=== PATIENT | male | born 1950 | race Caucasian/White ===

== ENCOUNTER 2016-12-17 15:52 | Emergency (ER) | payer OTHER ==
--- NOTE | 2016-12-17 16:42 | DIAGNOSTIC IMAGING REPORT ---
PROCEDURE: XR CHEST 2 VIEW INDICATION: FEVER TECHNIQUE: Two views. COMPARISON: 12/03/2013 FINDINGS: The cardiomediastinal contour is stable, within normal limits. The central vasculature is not congested. The lungs are clear without focal consolidation, pleural effusion or pneumothorax. Blunting of the posterior costophrenic angles, chronic. The visualized osseous structures are intact. IMPRESSION: 1. No evidence of acute cardiopulmonary disease. 2. Stable exam compared to prior study.
--- NOTE | 2016-12-17 18:12 | ED CLINICAL REPORT ---
Clinical Report - Physicians/Mid Levels [facility] [address] [place] [address] 12/17/2016 15:58 Patient: JAIME ALBA Time Seen: 16:11 Dec 17 2016. Arrived- By private vehicle. Historian- EMS personnel. HISTORY OF PRESENT ILLNESS Chief Complaint: MUSCLE ACHES fever. This started 5 days and is still present. The patient has had loss of appetite, fatigue, muscle aches and weakness. (weeks previously patient reports a sore throat, and some difficulty with his voice, which resolved in 2-3 days, consequently patient was at [employer] when his symptoms resolved, 3-4 days later he developed some diarrhea, and lasted for about 1 day 24 hours with fevers. He had been feeling better over December 09, and then around the seventh developed body aches or arthralgias fatigue, fevers. Denies a cough. Denies sick contacts.). REVIEW OF SYSTEMS The patient has had fever, abdominal pain, nausea and diarrhea. He has had a sore throat (now resolved). No cough, difficulty breathing, vomiting, black stools or bloody stools. No headache. No difficulty with ambulation. All systems otherwise negative, except as recorded above. PAST HISTORY Problems: Fractured Phalanx (Finger). Animal Bite. Allergic Rhinitis. Tetanus Status. Sinusitis. Pneumonia. Immunizations. Additional Surgeries: Gloria Fundoplasty. Medications: Symbicort Inhalation. Levothyroxine Sodium Oral. Fluticasone Furoate Nasal. Allergies: Reglan. Definite(swelling) Statins. Definite Severe (Lost muscle mass). SOCIAL HISTORY Never smoker. Alcohol use. ADDITIONAL NOTES The nursing notes have been reviewed. PHYSICAL EXAM Vital Signs: 12/17/2016 16:05 BP: 117/75. HR: 78. RR: 18. O2 saturation: 95%. Temp: 98.5 F. Appearance: Alert. Eyes: Eyes normal inspection. ENT: Ears normal. Nose normal. Neck: Normal inspection. CVS: Normal heart rate and rhythm. Heart sounds normal. Respiratory: No respiratory distress. Breath sounds normal. No decreased air movement. Abdomen: Tenderness in the suprapubic area. Back: Normal inspection. No CVA tenderness. Skin: Skin warm. Normal skin color. Neuro: Oriented X 3. LABS, X-RAYS, AND EKG Chest X-ray: (IMPRESSION: 1. No evidence of acute cardiopulmonary disease. 2. Stable exam compared to prior study. Electronically Final signed by:Sari Horvath MD 12/17/2016 4:42:24 PM). Laboratory Tests: UA-Culture if indicated: (JADE: 12/17/2016 18:04) ( MsgRcvd 12/17/2016 18:15) Final results Test Result Flag Units (Reference) URINE COLOR STRAW URINE APPEARANCE CLEAR URINE GLUCOSE NEGATIVE (NEGATIVE) URINE BILIRUBIN NEGATIVE (NEGATIVE) URINE KETONE NEGATIVE (NEGATIVE) URINE SPECIFIC GRAVITY <= 1.005 L (1.010-1.030) URINE PH 6.0 (5.0-8.0) URINE PROTEIN NEGATIVE (NEGATIVE) URINE UROBILINOGEN 0.2 EU/dL (0.2-1.0) URINE NITRITE NEGATIVE (NEGATIVE) URINE BLOOD NEGATIVE (NEGATIVE) URINE LEUK ESTERASE NEGATIVE (NEGATIVE) URINE RBC NONE SEEN rbc/hpf (0-1) URINE WBC RARE wbc/hpf (0-1) URINE EPITHELIAL CELLS RARE EPI/hpf (0-5) URINE BACTERIA NONE SEEN (NONE SEEN) URINE COMMENT CULT NOT INDICATED URINE CULTURES ARE SET-UP BASED ON THE FOLLOWING CRITERIA:POSITIVE NITRITEPOSITIVE LEUKOCYTE ESTERASEGREATER THAN 10 WHITE BLOOD CELLSMODERATE (2+) OR GREATER BACTERIA CBC w Diff: (JADE: 12/17/2016 16:40) ( MsgRcvd 12/17/2016 17:02) Final results Test Result Flag Units (Reference) WHITE BLOOD COUNT 9.7 K/uL (4.5-11.5) RED BLOOD COUNT 4.75 M/uL (4.50-5.90) HEMOGLOBIN 14.7 gm/dL (13.5-17.5) HEMATOCRIT 43.4 % (41.0-53.0) MEAN CELL VOLUME 92 fL (80-100) MEAN CORPUSCULAR HGB 31 pg (26-34) MEAN CORPUSCULAR HGB CONC 34 g/dL (31-37) RED CELL DISTRIBUTION WIDTH 13.1 % (11.6-14.8) PLATELET COUNT 264 K/uL (150-400) NEUTROPHIL % 82.4 H % (50-75) LYMPH % 7.5 L % (25-40) MONO % 9.6 % (3-14) EOSINOPHIL % 0.5 % (0-4) BASOPHIL % 0 % (0-2) [id number]: (JADE: 12/17/2016 16:55) ( MsgRcvd 12/17/2016 17:39) Final results Test Result Flag Units (Reference) PROCALCITONIN <0.5 ng/mL (0-0.5) PCT Concentration: Interpretation : Risk/option for action PCT <=0.5 ng/mL : Systemic : Low risk forinfection(sepsis): progression to severeis not likely. : systemic infection.Local bacterial : CAUTION-PCT levelsinfection is : below 0.5 ng/mL do notpossible. : exclude an infection,because localizedinfections (withoutsystemic signs) may beassociated with suchlow levels. If PCT ismeasured very earlyafter a bacterialchallenge (usually <6hours), these valuesmay still be low. Inthis case PCT shouldbe re-assessed 6-24hours later. PCT >0.5 and : Systemic infection: Moderate risk for<= 2 ng/mL : (sepsis) is : progression to severepossible, but : systemic infection.other conditions : The patient should beare known to : closely monitoredelevate PCT. : both clinically andby re-assessing PCTwithin 6-24 hours. PCT > 2 ng/mL : Systemic infection: High risk for(sepsis) is likely: progression to severeunless other : systemic infection.causes are known. : PCT >= 10 ng/mL : Important systemic: High likelihood ofinflammatory : severe sepsis orresponse, almost : septic shock.exclusively due to:severe bacterial :sepsis or septic :shock. : CMP: (JADE: 12/17/2016 16:40) ( MsgRcvd 12/17/2016 17:18) Final results Test Result Flag Units (Reference) GLUCOSE 112 H mg/dL (70-110) BUN 13 mg/dL (7-18) CREATININE 1.1 mg/dL (0.6-1.3) Estimated GFR >60 mL/min Estimated GFR- >60 mL/min Note: Persistent reduction over 3 months in eGFR<60 mL/min/1.73 m2 defines CKD. Patients with eGFR values>=60 mL/min/1.73 m2 may also have CKD if evidence ofpersistent proteinuria. Additional information may be foundat www.kidney.org. SODIUM 140 mmol/L (136-145) POTASSIUM 3.9 mmol/L (3.5-5.1) CHLORIDE 103 mmol/L (98-107) CARBON DIOXIDE 29 mmol/L (21-32) CALCIUM 9.4 mg/dL (8.5-10.1) TOTAL PROTEIN 7.8 g/dL (6.4-8.2) ALBUMIN 3.6 g/dL (3.3-5.0) BILIRUBIN, TOTAL 0.5 mg/dL (0.0-1.0) ALKALINE PHOSPHATASE 101 U/L (46-116) AST (SGOT) 15 U/L (15-37) ALT (SGPT) 23 U/L (12-78) LIPASE 120 U/L (73-393) . PROGRESS AND PROCEDURES Course of Care: records from [facility] from 12/16: UA trace blood, Sed rate elevated 35 CBC: wbc 9.5, h/h 14.8/ 43.2, plt 237, rbc 4.8 cmp:glucose 93, bun 15, creat 1.06, na 136, K 4.3, chloride 103, co2, 25, total protein 7.5, ca 9.5, ast 18, alt19, alk phos 84, t.bili 0.6, gfr> 60 While in the ER at the [facility] call, positive C. difficile. Patient is afebrile,no leukocytosis, with lower abdominal pain, which is minimal to tenderness in palpation in nature, and will be started on metronidazole outpatient. 12/17/2016 18:31 BP: 120/75. HR: 68. RR: 18. O2 saturation: 100%. Temp: 98.8 F. Patient is stable. Patient/family counseled. Disposition: Discharged. Condition: good. CLINICAL IMPRESSION Diarrhea (C. DIFF). INSTRUCTIONS Alternate Tylenol (Acetaminophen) or Motrin (Ibuprofen) for fever control. Take according to label instructions. Warnings: GENERAL WARNINGS: Return or contact your physician immediately if your condition worsens or changes unexpectedly, if not improving as expected, or if other problems arise. Prescription Medications: Metronidazole 500 mg: Take 1 tablet orally every 8 hours for 14 days OTC Medications: Take ibuprofen (Advil, Nuprin, etc.) according to label instructions. Available over the counter. Acetaminophen (available over the counter): take according to label instructions. Follow-up: Follow up with your doctor in two days as needed. (Electronically signed by Rachna Marte P.A.-C 12/17/2016 18:39)
--- NOTE | 2016-12-17 18:12 | ED CLINICAL REPORT ---
Clinical Report - Physicians/Mid Levels [facility] [address] [place] [address] 12/17/2016 15:58 Patient: JAIME ALBA Time Seen: 16:11 Dec 17 2016. Arrived- By private vehicle. Historian- EMS personnel. HISTORY OF PRESENT ILLNESS Chief Complaint: MUSCLE ACHES fever. This started 5 days and is still present. The patient has had loss of appetite, fatigue, muscle aches and weakness. (weeks previously patient reports a sore throat, and some difficulty with his voice, which resolved in 2-3 days, consequently patient was at [employer] when his symptoms resolved, 3-4 days later he developed some diarrhea, and lasted for about 1 day 24 hours with fevers. He had been feeling better over December 09, and then around the seventh developed body aches or arthralgias fatigue, fevers. Denies a cough. Denies sick contacts.). REVIEW OF SYSTEMS The patient has had fever, abdominal pain, nausea and diarrhea. He has had a sore throat (now resolved). No cough, difficulty breathing, vomiting, black stools or bloody stools. No headache. No difficulty with ambulation. All systems otherwise negative, except as recorded above. PAST HISTORY Problems: Fractured Phalanx (Finger). Animal Bite. Allergic Rhinitis. Tetanus Status. Sinusitis. Pneumonia. Immunizations. Additional Surgeries: Gloria Fundoplasty. Medications: Symbicort Inhalation. Levothyroxine Sodium Oral. Fluticasone Furoate Nasal. Allergies: Reglan. Definite(swelling) Statins. Definite Severe (Lost muscle mass). SOCIAL HISTORY Never smoker. Alcohol use. ADDITIONAL NOTES The nursing notes have been reviewed. PHYSICAL EXAM Vital Signs: 12/17/2016 16:05 BP: 117/75. HR: 78. RR: 18. O2 saturation: 95%. Temp: 98.5 F. Appearance: Alert. Eyes: Eyes normal inspection. ENT: Ears normal. Nose normal. Neck: Normal inspection. CVS: Normal heart rate and rhythm. Heart sounds normal. Respiratory: No respiratory distress. Breath sounds normal. No decreased air movement. Abdomen: Tenderness in the suprapubic area. Back: Normal inspection. No CVA tenderness. Skin: Skin warm. Normal skin color. Neuro: Oriented X 3. LABS, X-RAYS, AND EKG Chest X-ray: (IMPRESSION: 1. No evidence of acute cardiopulmonary disease. 2. Stable exam compared to prior study. Electronically Final signed by:Sari Horvath MD 12/17/2016 4:42:24 PM). Laboratory Tests: UA-Culture if indicated: (JADE: 12/17/2016 18:04) ( MsgRcvd 12/17/2016 18:15) Final results Test Result Flag Units (Reference) URINE COLOR STRAW URINE APPEARANCE CLEAR URINE GLUCOSE NEGATIVE (NEGATIVE) URINE BILIRUBIN NEGATIVE (NEGATIVE) URINE KETONE NEGATIVE (NEGATIVE) URINE SPECIFIC GRAVITY <= 1.005 L (1.010-1.030) URINE PH 6.0 (5.0-8.0) URINE PROTEIN NEGATIVE (NEGATIVE) URINE UROBILINOGEN 0.2 EU/dL (0.2-1.0) URINE NITRITE NEGATIVE (NEGATIVE) URINE BLOOD NEGATIVE (NEGATIVE) URINE LEUK ESTERASE NEGATIVE (NEGATIVE) URINE RBC NONE SEEN rbc/hpf (0-1) URINE WBC RARE wbc/hpf (0-1) URINE EPITHELIAL CELLS RARE EPI/hpf (0-5) URINE BACTERIA NONE SEEN (NONE SEEN) URINE COMMENT CULT NOT INDICATED URINE CULTURES ARE SET-UP BASED ON THE FOLLOWING CRITERIA:POSITIVE NITRITEPOSITIVE LEUKOCYTE ESTERASEGREATER THAN 10 WHITE BLOOD CELLSMODERATE (2+) OR GREATER BACTERIA CBC w Diff: (JADE: 12/17/2016 16:40) ( MsgRcvd 12/17/2016 17:02) Final results Test Result Flag Units (Reference) WHITE BLOOD COUNT 9.7 K/uL (4.5-11.5) RED BLOOD COUNT 4.75 M/uL (4.50-5.90) HEMOGLOBIN 14.7 gm/dL (13.5-17.5) HEMATOCRIT 43.4 % (41.0-53.0) MEAN CELL VOLUME 92 fL (80-100) MEAN CORPUSCULAR HGB 31 pg (26-34) MEAN CORPUSCULAR HGB CONC 34 g/dL (31-37) RED CELL DISTRIBUTION WIDTH 13.1 % (11.6-14.8) PLATELET COUNT 264 K/uL (150-400) NEUTROPHIL % 82.4 H % (50-75) LYMPH % 7.5 L % (25-40) MONO % 9.6 % (3-14) EOSINOPHIL % 0.5 % (0-4) BASOPHIL % 0 % (0-2) [id number]: (JADE: 12/17/2016 16:55) ( MsgRcvd 12/17/2016 17:39) Final results Test Result Flag Units (Reference) PROCALCITONIN <0.5 ng/mL (0-0.5) PCT Concentration: Interpretation : Risk/option for action PCT <=0.5 ng/mL : Systemic : Low risk forinfection(sepsis): progression to severeis not likely. : systemic infection.Local bacterial : CAUTION-PCT levelsinfection is : below 0.5 ng/mL do notpossible. : exclude an infection,because localizedinfections (withoutsystemic signs) may beassociated with suchlow levels. If PCT ismeasured very earlyafter a bacterialchallenge (usually <6hours), these valuesmay still be low. Inthis case PCT shouldbe re-assessed 6-24hours later. PCT >0.5 and : Systemic infection: Moderate risk for<= 2 ng/mL : (sepsis) is : progression to severepossible, but : systemic infection.other conditions : The patient should beare known to : closely monitoredelevate PCT. : both clinically andby re-assessing PCTwithin 6-24 hours. PCT > 2 ng/mL : Systemic infection: High risk for(sepsis) is likely: progression to severeunless other : systemic infection.causes are known. : PCT >= 10 ng/mL : Important systemic: High likelihood ofinflammatory : severe sepsis orresponse, almost : septic shock.exclusively due to:severe bacterial :sepsis or septic :shock. : CMP: (JADE: 12/17/2016 16:40) ( MsgRcvd 12/17/2016 17:18) Final results Test Result Flag Units (Reference) GLUCOSE 112 H mg/dL (70-110) BUN 13 mg/dL (7-18) CREATININE 1.1 mg/dL (0.6-1.3) Estimated GFR >60 mL/min Estimated GFR- >60 mL/min Note: Persistent reduction over 3 months in eGFR<60 mL/min/1.73 m2 defines CKD. Patients with eGFR values>=60 mL/min/1.73 m2 may also have CKD if evidence ofpersistent proteinuria. Additional information may be foundat www.kidney.org. SODIUM 140 mmol/L (136-145) POTASSIUM 3.9 mmol/L (3.5-5.1) CHLORIDE 103 mmol/L (98-107) CARBON DIOXIDE 29 mmol/L (21-32) CALCIUM 9.4 mg/dL (8.5-10.1) TOTAL PROTEIN 7.8 g/dL (6.4-8.2) ALBUMIN 3.6 g/dL (3.3-5.0) BILIRUBIN, TOTAL 0.5 mg/dL (0.0-1.0) ALKALINE PHOSPHATASE 101 U/L (46-116) AST (SGOT) 15 U/L (15-37) ALT (SGPT) 23 U/L (12-78) LIPASE 120 U/L (73-393) . PROGRESS AND PROCEDURES Course of Care: records from [facility] from 12/16: UA trace blood, Sed rate elevated 35 CBC: wbc 9.5, h/h 14.8/ 43.2, plt 237, rbc 4.8 cmp:glucose 93, bun 15, creat 1.06, na 136, K 4.3, chloride 103, co2, 25, total protein 7.5, ca 9.5, ast 18, alt19, alk phos 84, t.bili 0.6, gfr> 60 While in the ER at the [facility] call, positive C. difficile. Patient is afebrile,no leukocytosis, with lower abdominal pain, which is minimal to tenderness in palpation in nature, and will be started on metronidazole outpatient. 12/17/2016 18:31 BP: 120/75. HR: 68. RR: 18. O2 saturation: 100%. Temp: 98.8 F. Patient is stable. Patient/family counseled. Disposition: Discharged. Condition: good. CLINICAL IMPRESSION Diarrhea (C. DIFF). INSTRUCTIONS Alternate Tylenol (Acetaminophen) or Motrin (Ibuprofen) for fever control. Take according to label instructions. Warnings: GENERAL WARNINGS: Return or contact your physician immediately if your condition worsens or changes unexpectedly, if not improving as expected, or if other problems arise. Prescription Medications: Metronidazole 500 mg: Take 1 tablet orally every 8 hours for 14 days OTC Medications: Take ibuprofen (Advil, Nuprin, etc.) according to label instructions. Available over the counter. Acetaminophen (available over the counter): take according to label instructions. Follow-up: Follow up with your doctor in two days as needed. (Electronically signed by Rachna Marte P.A.-C 12/17/2016 18:39)
--- NOTE | 2016-12-17 18:12 | ED ORDER SUMMARY ---
..... Patient: JAIME ALBA OrderSheet [facility] VisitID: [id number] [address] [place] [address] 66y, M Registration Date/Time: 12/17/2016 ORDER SHEET Weight: 87.9 kg (stated) Allergies: Reglan, Statins GENERAL ORDERS: CBC w Diff Urgent (16:19 12/17/2016 EKoroleva P.A.-C) (Ack 16:22 PWeiler ER Tech1) (16:38 LWhalen R.N.) CMP Urgent (16:19 12/17/2016 EKoroleva P.A.-C) (Ack 16:22 PWeiler ER Tech1) (16:38 LWhalen R.N.) UA-Culture if indicated Urgent (16:19 12/17/2016 EKoroleva P.A.-C) (Ack 16:22 PWeiler ER Tech1) (16:38 LWhalen R.N.) Lipase Urgent (16:19 12/17/2016 EKoroleva P.A.-C) (Ack 16:22 PWeiler ER Tech1) (16:38 LWhalen R.N.) Rapid Influenza Screen (Nasal Pharyngeal) (n) Urgent (16:19 12/17/2016 EKoroleva P.A.-C) (Ack 16:23 PWeiler ER Tech1) (16:38 LWhalen R.N.) Chest 2V Urgent (16:19 12/17/2016 EKoroleva P.A.-C) (Ack 16:23 PWeiler ER Tech1) (16:38 LWhalen R.N.) PCT (Procalcitonin) Urgent (16:20 12/17/2016 EKoroleva P.A.-C) (Ack 16:23 PWeiler ER Tech1) (16:38 LWhalen R.N.) MEDICATION ORDERS: Metronidazole PO 500 mg (NOW) (18:05 12/17/2016 EKoroleva P.A.-C) (18:12 LWhalen R.N.) IV FLUIDS: IV NS : initial bolus 1000 mL (1000 mL/hr), then 1000 mL/hr for X1 (NOW); Anil (16:19 12/17/2016 Wilbert Velarde) (16:38 Daljit Freeman) ORDER SHEET NOTES: [Electronically signed by Rachna Marte P.A.-C (18:39 12/17/2016)] [Electronically signed by Lizzeth Núñez R.N. (19:34 12/18/2016)] [Electronically locked/signed by Lizzeth Núñez R.N. (19:34 12/18/2016)]
--- NOTE | 2016-12-17 18:12 | ED ORDER SUMMARY ---
..... Patient: JAIME ALBA OrderSheet [facility] VisitID: [id number] [address] [place] [address] 66y, M Registration Date/Time: 12/17/2016 ORDER SHEET Weight: 87.9 kg (stated) Allergies: Reglan, Statins GENERAL ORDERS: CBC w Diff Urgent (16:19 12/17/2016 EKoroleva P.A.-C) (Ack 16:22 PWeiler ER Tech1) (16:38 LWhalen R.N.) CMP Urgent (16:19 12/17/2016 EKoroleva P.A.-C) (Ack 16:22 PWeiler ER Tech1) (16:38 LWhalen R.N.) UA-Culture if indicated Urgent (16:19 12/17/2016 EKoroleva P.A.-C) (Ack 16:22 PWeiler ER Tech1) (16:38 LWhalen R.N.) Lipase Urgent (16:19 12/17/2016 EKoroleva P.A.-C) (Ack 16:22 PWeiler ER Tech1) (16:38 LWhalen R.N.) Rapid Influenza Screen (Nasal Pharyngeal) (n) Urgent (16:19 12/17/2016 EKoroleva P.A.-C) (Ack 16:23 PWeiler ER Tech1) (16:38 LWhalen R.N.) Chest 2V Urgent (16:19 12/17/2016 EKoroleva P.A.-C) (Ack 16:23 PWeiler ER Tech1) (16:38 LWhalen R.N.) PCT (Procalcitonin) Urgent (16:20 12/17/2016 EKoroleva P.A.-C) (Ack 16:23 PWeiler ER Tech1) (16:38 LWhalen R.N.) MEDICATION ORDERS: Metronidazole PO 500 mg (NOW) (18:05 12/17/2016 EKoroleva P.A.-C) (18:12 LWhalen R.N.) IV FLUIDS: IV NS : initial bolus 1000 mL (1000 mL/hr), then 1000 mL/hr for X1 (NOW); Anil (16:19 12/17/2016 Wilbert Velarde) (16:38 Daljit Freeman) ORDER SHEET NOTES: [Electronically signed by Rachna Marte P.A.-C (18:39 12/17/2016)] [Electronically signed by Lizzeth Núñez R.N. (19:34 12/18/2016)] [Electronically locked/signed by Lizzeth Núñez R.N. (19:34 12/18/2016)]
--- NOTE | 2016-12-17 18:12 | ED NURSING NOTES ---
Clinical Report - Nurses [facility] [address] [place] [address] 12/17/2016 15:58 Patient: JAIME ALBA TRIAGE Triage time 16:Dec 17 2016. Acuity: LEVEL 3. Chief Complaint: FEVER, CHILLS, MUSCLE ACHES, HEADACHE, EAR PAIN, DIARRHEA and ABDOMINAL PAIN. EWA COMA SCORE: Ewa Coma Scale: 15- eyes open spontaneously (4); best verbal response- oriented x 4 (5); best motor response- obeys commands (6). --16:19 Lizzeth Núñez R.N. 16:05 12/17/16. BP: 117/75. HR: 78. RR: 18. O2 saturation: 95%. Temp: 98.5 F. Pain level now 6/10. --16:19 Lizzeth Núñez R.N. Weight: 87.9 kg stated. Height/Length: 71 inches Per Patient. BMI: 27. --16:18 Lizzeth Núñez R.N. Medications Fluticasone Furoate Nasal. --16:11 Lizzeth Núñez R.N. Levothyroxine Sodium Oral. --16:12 Lizzeth Núñez R.N. Symbicort Inhalation. --16:12 Lizzeth Núñez R.N. Allergies Reglan. Definite(swelling) Statins. Definite Severe (Lost muscle mass) --16:11 Lizzeth Núñez R.N. History Arrived by private vehicle. Historian: patient. Accompanied by family. ( Patient has been having diarrhea off and on since the . Is having body aches and headache. A fever off and on. States feels like the flu aches all over.). He has had fever and weakness. Reports muscle aches. No cough, difficulty breathing or skin rash. Treatment COLLISION REPAIRER: Took Tylenol. PAST MEDICAL HX: No history of diabetes mellitus, hypertension, heart disease or lung disease. Immunizations: up-to-date. SOCIAL HX: Never smoker. Occasional alcohol use. No drug use. SELF HARM ASSESSMENT: A self harm assessment was performed. The patient answered "no" to the question "Have you recently felt down, depressed, or hopeless?" and "Do you have thoughts of harming or killing yourself?". FALL RISK ASSESSMENT: Fall risk assessment completed. No fall risk identified. NUTRITIONAL RISK ASSESSMENT: The nutritional risk assessment revealed no deficiencies. FUNCTIONAL ASSESSMENT: Functional assessment: no impairments noted. LEARNING NEEDS ASSESSMENT: The learning needs assessment revealed no barriers. ABUSE ASSESSMENT: Abuse assessment: (yes) The patient was asked "Do you feel safe in your home?". SKIN INTEGRITY ASSESSMENT: Skin integrity risk assessment completed. No skin integrity risk identified. --16:19 Lizzeth Núñez R.N. PROBLEMS: Fractured Phalanx (Finger). Animal Bite. Allergic Rhinitis. Tetanus Status. Sinusitis. Pneumonia. Immunizations. --16:12 Lizzeth Núñez R.N. ADDITIONAL SURGERIES: Gloria Fundoplasty. --16:12 Lizzeth Núñez R.N. Interventions ID band on patient. --16:19 Lizzeth Núñez R.N. PHYSICAL ASSESSMENT Ambulatory to room. ( States headache especially on right side.). GENERAL / NEURO / PSYCH: Alert. Oriented X 4. Appears in no acute distress. 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 HEENT: Pupils equal, round and reactive to light. No facial asymmetry noted. Mucous membranes are pink. RESPIRATORY: Respirations not labored. Chest nontender. Breath sounds within normal limits. CVS: Normal sinus rhythm noted. Capillary refill less than 2 seconds. Pulses within normal limits. GI / : ( Lower abdominal pains with diarrhea). Abdominal tenderness. SKIN: Skin intact. Skin is warm and dry. Normal skin turgor. --16:21 Lizzeth Núñez R.N. NURSING PROGRESS NOTES The initial plan of care for this patient includes an assessment with efforts to address patient positioning, appropriate ambient lighting and comfortable environmental temperature; impairment of the gastrointestinal system. Pulse oximeter and NIBP monitor placed on patient. Patient gowned. Reassurance given. Call light placed in reach. Side rails up x 1. Bed placed in lowest position. Brakes of bed on. --16:22 Lizzeth Núñez R.N. 16:38 12/17/2016 Site #1 started via IV in the right antecubital space with an 18g angiocath, with aseptic technique and good blood return; one attempt. Blood drawn: rainbow set. Labeled in the presence of the patient and sent to the lab. Saline lock flushed with 10 mL saline. --16:38 Lizzeth Núñez R.N. 16:38 12/17/2016 Started bag #1 1000 mL IV Fluids IV NS (Saline); at 1000 mL/hr over 1 hour(s) via site #1 via dial-a-flow. Allergies verified and confirmed 5 rights. --16:38 Lizzeth Núñez R.N. 17:22 12/17/16. BP: 102/55. HR: 60. RR: 18. O2 saturation: 96%. --17:23 Lizzeth Núñez R.N. 17:24 12/17/2016 IV Fluids IV NS Discontinued: bag #1 infused. Total amount infused: 1000 mL. IV patency established. IV site checked: no pain, redness, or swelling. IV flushed thoroughly. --17:24 Lizzeth Núñez R.N. 17:28 12/17/2016 Started bag #1 1000 mL IV Fluids IV NS (Saline); at 999 mL/hr over 1 hour(s) via site #1 via dial-a-flow. Allergies verified and confirmed 5 rights. IV patency established. IV site checked: no pain, redness, or swelling. IV flushed thoroughly pre- and post-medication administration. --17:28 Lizzeth Núñze R.N. 18:12 12/17/2016 Metronidazole PO Tablets 500 mg given. Allergies verified and confirmed 5 rights. --18:12 Lizzeth Núñez R.N. 18:34 12/18/2016 IV Fluids IV NS Discontinued: bag #2 infused upon discharge. Total amount infused: 1000 mL. IV patency established. IV site checked: no pain, redness, or swelling. IV flushed thoroughly. --19:34 Lizzeth Núñez R.N. DISPOSITION / DISCHARGE 18:36 12/17/2016 Site #1 removed upon discharge. Catheter intact. Pressure dressing applied. --18:36 Lizzeth Núñez R.N. Departure time: 18:36 Dec 17 2016. Condition at departure: improved. No learning barriers present. Discharge instructions provided and reviewed with the patient. Reviewed warnings. Reviewed medication(s). Treatments reviewed. Reviewed referrals. Patient verbalized understanding. Written instructions provided in [place]. The patient was discharged home and accompanied by spouse. He left the Emergency Department ambulatory and via private vehicle. Spouse driving. --18:37 Lizzeth Núñez R.N. 18:31 12/17/16. BP: 120/75. HR: 68. RR: 18. O2 saturation: 100%. Temp: 98.8 F. Pain level now 08/17. --18:37 Lizzeth Núñez R.N. Locked/Released at 12/18/2016 19:34 by Lizzeth Núñez R.N.
--- NOTE | 2016-12-18 19:35 | ED MED RECONCILIATION SUMMARY ---
Patient: JAIME ALBA Medication Reconciliation Report [facility] VisitID: [id number] [address] [place] [address] 66y, M Registration Date/Time: 12/17/2016 Weight: 87.9 kg Height/Length: 71 in. BMI: 27.0 ALLERGIES: Reglan, Statins The patient's Home Medications are listed below: THE FOLLOWING MEDICATIONS NEED TO BE RECONCILED: Fluticasone Furoate Nasal Levothyroxine Sodium Oral Symbicort Inhalation The source(s) of the original Home Medication information: Not obtained. The following Medications were given to the patient in the Emergency Department: IV NS IV Fluids bolus 0, then 1000 mL/hr, administered: 12/17/2016 4:38:00 PM IV NS IV Fluids bolus 0, then 999 mL/hr, administered: 12/17/2016 5:28:00 PM Metronidazole [PO] PO 500 mg, administered: 12/17/2016 6:12:00 PM The following Medications were prescribed to the patient: Take ibuprofen (Advil, Nuprin, etc.) according to label instructions. Available over the counter. -- Rachna Marte, P.A.-C Acetaminophen (available over the counter): take according to label instructions. -- Rachna Marte, P.A.-C Metronidazole 500 mg: Take 1 tablet orally every 8 hours for 14 days -- Rachna Marte, P.A.-C
--- NOTE | 2016-12-18 19:35 | ED MED RECONCILIATION SUMMARY ---
Patient: JAIME ALBA Medication Reconciliation Report [facility] VisitID: [id number] [address] [place] [address] 66y, M Registration Date/Time: 12/17/2016 Weight: 87.9 kg Height/Length: 71 in. BMI: 27.0 ALLERGIES: Reglan, Statins The patient's Home Medications are listed below: THE FOLLOWING MEDICATIONS NEED TO BE RECONCILED: Fluticasone Furoate Nasal Levothyroxine Sodium Oral Symbicort Inhalation The source(s) of the original Home Medication information: Not obtained. The following Medications were given to the patient in the Emergency Department: IV NS IV Fluids bolus 0, then 1000 mL/hr, administered: 12/17/2016 4:38:00 PM IV NS IV Fluids bolus 0, then 999 mL/hr, administered: 12/17/2016 5:28:00 PM Metronidazole [PO] PO 500 mg, administered: 12/17/2016 6:12:00 PM The following Medications were prescribed to the patient: Take ibuprofen (Advil, Nuprin, etc.) according to label instructions. Available over the counter. -- Rachna Marte, P.A.-C Acetaminophen (available over the counter): take according to label instructions. -- Rachna Marte, P.A.-C Metronidazole 500 mg: Take 1 tablet orally every 8 hours for 14 days -- Rachna Marte, P.A.-C
--- NOTE | 2016-12-18 19:35 | ED MAR SUMMARY ---
..... Medication Administration [facility] [address] [place] [address] Patient: JIAME ALBA Visit ID: [id number] 66y, M Weight: 87.9 kg Height/Length: 71 in BMI: 27 ALLERGIES: Reglan, Statins Start 16:38 12/17/2016 Lizzeth Núñez R.N., Stop 17:24 12/17/2016 Lizzeth Núñez R.N. Medication Administered: IV NS (SALINE), Dose: IV Fluids over 1 hour(s), Rate: 1000 mL/hr, Dispensed: 1000 mL bag, Site: #1 right AC. Medication Ordered: IV NS : initial bolus 1000 mL (1000 mL/hr), then 1000 mL/hr for X1 (NOW); Anil. Start 17:28 12/17/2016 Lizzeth Núñez R.N., Stop 18:34 12/18/2016 Lizzeth Núñez R.N. Medication Administered: IV NS (SALINE), Dose: IV Fluids over 1 hour(s), Rate: 999 mL/hr, Dispensed: 1000 mL bag, Site: #1 right AC. Medication Ordered: IV NS : initial bolus 1000 mL (1000 mL/hr), then 1000 mL/hr for X1 (NOW); Anil. Given 18:12 12/17/2016 Lizzeth Núñez R.N. Medication Administered: METRONIDAZOLE [PO], Dose: 500 mg Tablets PO. Medication Ordered: Metronidazole PO 500 mg (NOW).
--- NOTE | 2016-12-18 19:35 | ED MAR SUMMARY ---
..... Medication Administration Record [facility] [address] [place] [address] Patient: JAIME ALBA Visit ID: [id number] 66y, M Weight: 87.9 kg Height/Length: 71 in BMI: 27 ALLERGIES: Reglan, Statins Start 16:38 12/17/2016 Lizzeth Núñez R.N., Stop 17:24 12/17/2016 Lizzeth Núñez R.N. Medication Administered: IV NS (SALINE), Dose: IV Fluids over 1 hour(s), Rate: 1000 mL/hr, Dispensed: 1000 mL bag, Site: #1 right AC. Medication Ordered: IV NS : initial bolus 1000 mL (1000 mL/hr), then 1000 mL/hr for X1 (NOW); Anil. Start 17:28 12/17/2016 Lizzeth Núñez R.N., Stop 18:34 12/18/2016 Lizzeth Núñez R.N. Medication Administered: IV NS (SALINE), Dose: IV Fluids over 1 hour(s), Rate: 999 mL/hr, Dispensed: 1000 mL bag, Site: #1 right AC. Medication Ordered: IV NS : initial bolus 1000 mL (1000 mL/hr), then 1000 mL/hr for X1 (NOW); Anil. Given 18:12 12/17/2016 Lizzeth Núñez R.N. Medication Administered: METRONIDAZOLE [PO], Dose: 500 mg Tablets PO. Medication Ordered: Metronidazole PO 500 mg (NOW).
--- NOTE | 2016-12-18 19:35 | ED DISCHARGE INSTRUCTIONS ---
Patient: JAIME ALBA General Instructions [facility] VisitID: [id number] [place] [address] 66y, M Registration Date/Time: 12/17/2016 Diarrhea (C. DIFF). INSTRUCTIONS Alternate Tylenol (Acetaminophen) or Motrin (Ibuprofen) for fever control. Take according to label instructions. Warnings: GENERAL WARNINGS: Return or contact your physician immediately if your condition worsens or changes unexpectedly, if not improving as expected, or if other problems arise. Prescription Medications: Metronidazole 500 mg: Take 1 tablet orally every 8 hours for 14 days OTC Medications: Take ibuprofen (Advil, Nuprin, etc.) according to label instructions. Available over the counter. Acetaminophen (available over the counter): take according to label instructions. Follow-up: Follow up with your doctor in two days as needed. ADDITIONAL INFORMATION Diarrhea, Bacterial [6Yr-Adult] You have gastro-enteritis which is another name for an infection in the intestinal tract. Although most of the time this is due to a virus ("stomach flu"), you may have a more serious bacterial infection . This may cause fever, vomiting, stomach cramping and diarrhea. There may also be blood or mucus in the stool. Antibiotics are often used to treat this type of infection. Sometimes it is necessary to wait until a stool culture is complete before an antibiotic can be chosen. This may take about two days. In the meantime, follow the advice below. Home Care 1. If antibiotics were prescribed, take them until they are finished. 2. You may use acetaminophen (Tylenol) or ibuprofen (Motrin, Advil) to control pain and fever, unless another medicine was prescribed for this. [NOTE: If you have chronic liver or kidney disease or ever had a stomach ulcer or GI bleeding, talk with your doctor before using these medicines.] (Aspirin should never be used in anyone under 18 years of age who is ill with a fever. It may cause severe liver damage.) 3. Do not give [id number] anti-diarrheal medicines, unless advised by your doctor. 4. Once vomiting stops: During The First 12-24 Hours follow the diet below: BEVERAGES: Sport drinks like Gatorade, soft drinks without caffeine; gingerale, mineral water (plain or flavored), decaffeinated tea and coffee. SOUPS: Clear broth, consomm and bouillon DESSERTS: Plain gelatin (Jell-O), popsicles and fruit juice bars. During The Next 24 Hours you may add the following to the above: Hot cereal, plain toast, bread, rolls, crackers Plain noodles, rice, mashed potatoes, chicken noodle or rice soup Unsweetened canned fruit (avoid pineapple), bananas Limit fat intake to less than 15 grams per day by avoiding margarine, butter, oils, mayonnaise, sauces, gravies, fried foods, peanut butter, meat, poultry and fish. Limit fiber; avoid raw or cooked vegetables, fresh fruits (except bananas) and bran cereals. Limit caffeine and chocolate. No spices or seasonings except salt. During The Next 24 Hours Gradually resume a normal diet, as you feel better and your symptoms lessen. 5. PREVENTION General Tips Hand washing with soap and water is the best way to prevent the spread of infection. Wash hands after handling your sick child. Wash your hands after using the toilet and before meals. Clean the toilet after each use. Keep your child out of school until cleared by your doctor. Food Preparation People with diarrhea should not prepare food for others. When preparing foods, wash your hands before and after. Wash your hands after using cutting boards, counter-tops and knives that have been in contact with raw foods. When preparing foods, keep uncooked meats away from cooked and [id number]-ic-phy foods. Follow Up with your doctor as advised. Call if not improving within 24 hours or if diarrhea lasts more than one week on antibiotics. If a stool (diarrhea) sample was taken, you may call in 2 days (or as directed) for the results. Get Prompt Medical Attention if any of the following occur: Increasing abdominal pain or constant lower right abdominal pain Continued vomiting (unable to keep liquids down) Frequent diarrhea (more than 5 times a day) Blood in vomit or stool (black or red color) Reduced oral intake Dark urine, reduced urine output Weakness, dizziness, fainting Drowsiness, confusion, stiff neck or seizure Fever over 101.0 F (38.3 C) for more than 3 days New rash Fever Control (Adult) A fever is a natural reaction of the body to an illness. In most cases, the temperature itself is not harmful. It actually helps the body fight infections. A fever does not need to be treated unless you feel very uncomfortable. Home Care If you feel warm, check your temperature. If you feel very uncomfortable and your temperature is at or higher than 100.4F (38C) oral, you may take acetaminophen (Tylenol) every 4 to 6 hours. If you cant take or keep down oral medicine, ask your pharmacist for Tylenol suppositories, which you can get without a prescription. If the fever does not respond to acetaminophen within 1 hour, take ibuprofen (Advil or Motrin). If this works, keep taking the ibuprofen every 6 to 8 hours. Note: If you have chronic liver or kidney disease or ever had a stomach ulcer or GI bleeding, talk with your doctor before using these medications. If either medication alone does not keep the fever down, you may alternate the two medicines every 3 to 4 hours, only if your healthcare provider has instructed you to do so. For example, take Motrin then wait 3 hours, take Tylenol then wait 3 hours, take Motrin, and so on. Follow your healthcare providers instructions exactly. Clothing: Keep clothing light because excess body heat is lost through the skin. The fever will go up if you wear extra layers or wrap in blankets. Fluids: Fever causes the body to lose water through evaporation. Drink plenty of fluids such as water, juice, clear sodas, teodoro annmarie, or lemonade. Do not use aspirin in anyone under 18 years of age who is ill with a fever. It can cause severe liver damage. Follow Up with your doctor or as advised by our staff if you do not get better after 48 hours. Get Prompt Medical Attention if any of the following occur: Fever does not get better after taking fever medication Fast or difficult breathing Earache, sinus pain, stiff or painful neck, headache, repeated diarrhea or vomiting You feel unusually irritable, drowsy, or confused A rash appears You feel weak or dizzy, or that you might faint You have been given the following additional information: Diarrhea, Bacterial (6Y-Adult) Fever Control (Adult) (Electronically signed by Rachna Marte P.A.-C 12/17/2016 18:39)
== END 2016-12-17 18:30 | disposition home or self-care (01) ==
LOC: ED SRH 15:52
DX: A04.7 Enterocolitis due to Clostridium difficile (principal); Z88.8 Allergy status to other drugs, medicaments and biological substances; Z79.899 Other long term (current) drug therapy
CPT/HCPCS: 90004; 90100; 92235; 93004; 95059

== ENCOUNTER 2017-01-10 07:44 | Outpatient (CLI) | payer OTHER | END 2017-01-10 23:00 | disposition home or self-care (01) | LOC: LAB SRH 07:44 | DX: R19.7 Diarrhea, unspecified (principal) | CPT/HCPCS: 90112 ==